=== PATIENT | female | born 1930 | race Caucasian/White ===

== ENCOUNTER → 2017-01-29 | Outpatient (CLI) | payer BC ==
[~2017-01-29] MED LIST: ACET-1256 PO; AMLO-110 PO; ASPEC325 PO; ASPI81TA28 PO; ATEN-174 PO; CLB200 PO; HYDR25TA4 PO; LETR2TAB PO; LEVO88TA22 PO; LOSA1TAB38 PO; NCY50 PO; NCYSR50 PO; NRN/300 PO; POTA10CA28 PO; SIMV20TA5 PO
[2017-01-29 18:24] LABS: ALT/SGPT 19 U/L (12-78); AST/SGOT 18 U/L (15-37); BLOOD UREA NITROGEN 31 mg/dl (7-18); BUN/CREATININE RATIO 23.8 (10-20); CALCIUM 9.4 mg/dl (8.5-10.1); CARBON DIOXIDE 26 mmol/L (21-32); CHLORIDE 101 mmol/L (98-107); GLUCOSE 112 mg/dl (70-99); POTASSIUM 3.8 mmol/L (3.5-5.1); SODIUM 134 mmol/L (136-145)
[2017-01-29 18:36] LABS: ALKALINE PHOSPHATASE 62 U/L (45-117); CHOLESTEROL 136 mg/dl (0-200); CHOLESTEROL/HDL RATIO 2.6; HDL CHOLESTEROL 52 mg/dl; LDL CHOLESTEROL CALCULATED 40 mg/dl; TRIGLYCERIDES 220 mg/dl (0-150); VERY LOW DENSITY LIPOPROT CALC 44 mg/dl
== END | disposition home or self-care (01) ==
LOC: C.LABMFLN 15:58
PROVIDERS: ATTEND Family Medicine
DX: Z00.00 Encounter for general adult medical examination without abnormal findings (principal); I10 Essential (primary) hypertension; E03.9 Hypothyroidism, unspecified; E78.00 Pure hypercholesterolemia, unspecified; M85.80 Other specified disorders of bone density and structure, unspecified site; M79.89 Other specified soft tissue disorders; R51 Headache

== ENCOUNTER → 2017-07-22 | Outpatient (CLI) | payer BC ==
[2017-07-22 12:53] LABS: ALT/SGPT 21 U/L (12-78); AST/SGOT 24 U/L (15-37); BLOOD UREA NITROGEN 22 mg/dl (7-18); BUN/CREATININE RATIO 19.6 (10-20); CALCIUM 9.8 mg/dl (8.5-10.1); CARBON DIOXIDE 22 mmol/L (21-32); CHLORIDE 99 mmol/L (98-107); CHOLESTEROL 131 mg/dl (0-200); CREATININE 1.13 mg/dl (0.60-1.20); GLUCOSE 101 mg/dl (70-99); POTASSIUM 4.2 mmol/L (3.5-5.1); SODIUM 131 mmol/L (136-145); TRIGLYCERIDES 163 mg/dl (0-150); VERY LOW DENSITY LIPOPROT CALC 33 mg/dl
[2017-07-22 13:02] LABS: ALKALINE PHOSPHATASE 56 U/L (45-117); CHOLESTEROL/HDL RATIO 2.3; HDL CHOLESTEROL 57 mg/dl; LDL CHOLESTEROL CALCULATED 41 mg/dl; TOTAL IRON BINDING CAPACITY 392 mcg/dl (250-450)
[2017-07-22 13:06] LABS: BASO % 1.2 %; BASO ABS # 0.06 K/uL (0-0.2); COMPLETE YES; EOS % 3.2 %; HEMATOCRIT 39.3 % (37-47); IG% 0.2 %; LYMPH % 24.9 %; LYMPH ABS # 1.25 K/uL (1.2-3.4); MEAN CELL VOLUME 94.2 fL (80-100); MEAN CORPUSCULAR HEMOGLOBIN 32.9 pg (25-34); MEAN CORPUSCULAR HGB CONC 34.9 g/dl (32-36); MEAN PLATELET VOLUME 10.3 fL (7.4-10.4); MONO % 11.4 %; NEUT % 59.1 %; PLATELET COUNT 297 K/uL (130-400); RED BLOOD COUNT 4.17 M/uL (4.2-5.4); WHITE BLOOD COUNT 5.02 K/uL (4.8-10.8)
== END | disposition home or self-care (01) ==
LOC: C.LABMFLN 10:09
PROVIDERS: ATTEND Family Medicine
DX: E03.9 Hypothyroidism, unspecified (principal); D50.9 Iron deficiency anemia, unspecified; M15.9 Polyosteoarthritis, unspecified; E78.00 Pure hypercholesterolemia, unspecified; M85.80 Other specified disorders of bone density and structure, unspecified site

== ENCOUNTER → 2017-08-13 | Outpatient (CLI) | payer BC ==
[2017-08-13 13:14] LABS: BLOOD UREA NITROGEN 20 mg/dl (7-18); BUN/CREATININE RATIO 18.6 (10-20); CALCIUM 9.4 mg/dl (8.5-10.1); CARBON DIOXIDE 23 mmol/L (21-32); CHLORIDE 99 mmol/L (98-107); CREATININE 1.07 mg/dl (0.60-1.20); GLUCOSE 104 mg/dl (70-99); SODIUM 131 mmol/L (136-145)
== END | disposition home or self-care (01) ==
LOC: C.LABMFLN 07:39
PROVIDERS: ATTEND Family Medicine
DX: E87.1 Hypo-osmolality and hyponatremia (principal)

== ENCOUNTER → 2017-09-23 | Outpatient (CLI) | payer BC ==
--- NOTE | 2017-09-23 14:42 | MAMMOGRAPHY REPORT ---
BILATERAL DIGITAL DIAGNOSTIC MAMMOGRAM TOMOSYNTHESIS WITH CAD AND TARGETED LEFT ULTRASOUND: 09/23/2017 CLINICAL HISTORY: Personal history of breast cancer. Asymptomatic. TECHNIQUE: Bilateral breast tomosynthesis in addition to standard 2D mammography was performed. Curre nt study was also evaluated with a Computer Aided Detection (CAD) system. COMPARISON: Comparison is made to exams dated: 08/03/2016 mammogram, 08/02/2015 mammogram - [facility], 06/01/2014 mammogram, 05/27/2013 mammogram, and 05/23/2012 mammogram - [facility] [place] . BREAST COMPOSITION: The tissue of both breasts is heterogeneously dense, which may obscure small mas ses. FINDINGS: There is expected architectural distortion in the lateral posterior left breast, at the sit e of prior lumpectomy. There are diffuse benign rim calcifications throughout the left greater than right breast and mild to moderate vascular calcification. No new suspicious microcalcifications, foc al area of architectural distortion or developing asymmetry is identified. There are intramammary ly mph nodes in the superior posterior right breast on the MLO view. There is a 7 mm nodular asymmetry in the anterior left breast only seen on CC tomosynthesis slice 17/65 which could represent normal fi broglandular tissue although further evaluation with ultrasound was performed. Targeted ultrasound was performed in the left breast along the sagittal plane of the nipple from the 12:00 through 6:00 including retroareolar breast. Sonographically normal tissue is seen without a di screte solid or cystic mass. IMPRESSION: ACR BI-RADS CATEGORY 2: BENIGN, TARGETED ULTRASOUND ACR BI-RADS CATEGORY 2: BENIGN No mammographic evidence of malignancy bilaterally. No targeted sonographic evidence of malignancy i n the left breast. A nodular asymmetry only seen on the left CC tomosynthesis images most likely rep resents normal overlapping tissue, as no sonographic correlate was identified. Recommend bilateral s creening tomosynthesis mammography in one year. These results and recommendations were discussed with the patient at the time of the exam. Approximately 10% of breast cancers are not detected with mammography. A negative mammographic report should not delay biopsy if a clinically suggestive mass is present. Maria R Raymond M.D. ay/:09/23/2017 11:12:19 [employer] Worker: Kadie HULL(Osvaldo)(Carli), [facility] letter sent: Normal 09/03 BI-RADS Code: ACR BI-RADS Category 2: Benign Ultrasound BI-RADS: ACR BI-RADS Category 2: Benign
== END | disposition home or self-care (01) ==
LOC: C.MAMM 09:58
PROVIDERS: ATTEND Family Medicine
DX: R92.8 Other abnormal and inconclusive findings on diagnostic imaging of breast (principal); N64.89 Other specified disorders of breast